=== PATIENT | male | born 1970 | race Caucasian/White ===

== ENCOUNTER 2019-03-29 14:09 | Emergency (ER) | payer OTHER, SELFPAY ==
--- NOTE | ~2019-03-29 | XR_ITS ---
EXAMINATION: XR chest 2V EXAM DATE: 03/29/2019 15:02 INDICATION: Cough, fever. TECHNIQUE: Frontal and lateral projections of the chest obtained and reviewed. Comparison is made to prior examination from 06/10/2018. FINDINGS: The lungs are clear. There are no pleural effusions. The cardiomediastinal silhouette is within normal limits. There is no pneumothorax suspected. The bones and soft tissues are unremarkab le. IMPRESSION: Normal chest x-ray exam. Reviewed, dictated and finalized at location [facility] IMPRESSION: Normal chest x-ray exam.
[2019-03-29 14:20] VITALS: BP 115/76; PULSE 84; RESP 16; TEMP 36.7; O2SAT 100
--- NOTE | 2019-03-29 14:57 | ED.URI ---
HPI - URI/Sore Throat General Chief Complaint: Upper Respiratory Infection Stated Complaint: COUGH/CONGESITON/FEVER Time Seen by Provider: 03/29/19 14:47 Source: patient Mode of arrival: ambulatory Limitations: no limitations History of Present Illness HPI Narrative: 49-year-old male presents for evaluation of symptoms that developed 3 to 4 days ago. He is reporting a fever max of 104, chills, sweats, myalgias, cough that is mildly productive, intermittent chest tightness, soreness with cough. He is used DayQuil and NyQuil for symptoms. He has been exposed to family members with similar symptoms. He reports history of cardiac murmur, palpitations. He saw his riveting machine operator 2 weeks ago and had a full work-up that was negative. He did not get a flu shot this season. He denies smoking. Related Data Home Medications Medication Instructions Recorded Confirmed aspirin [Aspirin Childrens] 81 mg PO DAILY 03/29/19 03/29/19 nebivolol [Bystolic] mg 03/29/19 Allergies Allergy/AdvReac Type Severity Reaction Status Date / Time Penicillins Allergy Mild unknown Verified 06/10/18 09:26 BEE STINGS Allergy Unknown SWELLING Uncoded 04/22/14 10:25 Review of Systems Review of Systems: Narrative: CONSTITUTIONAL: Denies weight loss. reports fever, chills, sweats. EYES: Denies visual changes, redness, or discharge. ENT: Reports rhinorrhea, congestion, sore throat.denies otalgia. CARDIOVASCULAR: Reports chest heaviness, chest pain. Denies edema. RESPIRATORY: Reports cough. Denies dyspnea. GASTROINTESTINAL: Denies abdominal pain, nausea, vomiting, or diarrhea. GENITOURINARY: Denies dysuria, hematuria, urinary frequency, malordous urine SKIN: Denies rash or itching. MUSCULOSKELETAL: Denies back pain, joint pain, swelling. Reports myalgias NEUROLOGIC: Denies headache, numbness, or weakness. PMFSH Comments Reviewed Exam Narrative: Exam Narrative: GENERAL: No distress, well appearing, well nourished, alert and calm HEAD: Normocephalic, atraumatic. No sinus tenderness noted EYES: Pupils equal, round. Extraocular movements intact. Conjunctivae without redness or drainage. EARS: Tympanic membranes without erythema. TM landmarks intact with good light reflex. Ear canals without discharge. NOSE: Nares patent. Nasal turbinates noninflamed. No nasal discharge MOUTH: Mucous membranes moist. No lesions. No cyanosis. Dentition grossly normal. THROAT: Oropharynx without signs erythema, exudates or lesions. Tonsils not enlarged. NECK: Supple. No lymphadenopathy. RESPIRATORY: Airway patent. Decreased aeration noted to bilateral bases. No wheezing or crackles CARDIOVASCULAR: Regular rate and rhythm. Murmur noted. No rubs, gallops, or clicks. Capillary refill <2 seconds. GASTROINTESTINAL: Soft, nontender, non-distended. Bowel sounds normoactive. No masses. No organomegaly. No CVA tenderness MUSCULOSKELETAL: Range of motion grossly normal in all four extremities. Strength grossly normal in all four extremities. No edema. No swelling SKIN: Color normal. Warm and dry. No rashes. NEURO: Alert. Motor intact in all extremities. Muscle tone normal. Cranial nerves II through XII grossly intact Course Course Emergency Course: Than patient's cardiac history along with symptoms of chest heaviness and occasional chest pain, and recommend patient get EKG. Patient declined this test as he saw his riveting machine operator 2 weeks ago and had a full work-up. Educated patient about risks of not doing test in case there was an acute coronary event. Patient aware and verbalized understanding. Vital Signs Vital signs: Vital Signs Temperature 98.0 F 03/29/19 14:20 Pulse Rate 84 03/29/19 14:20 Respiratory Rate 16 03/29/19 14:20 Blood Pressure 115/76 03/29/19 14:20 Pulse Oximetry 100 03/29/19 14:20 Temperature 98.0 F 03/29/19 14:20 Pulse Rate 84 03/29/19 14:20 Respiratory Rate 16 03/29/19 14:20 Blood Pressure 115/76 03/29/19 14:20 Pulse Oxim
== END 2019-03-29 15:41 | disposition home or self-care (01) ==
PROVIDERS: Emergency Provider Nurse Practitioner
DX: J10.1 Influenza due to other identified influenza virus with other respiratory manifestations (principal); R01.1 Cardiac murmur, unspecified
CPT/HCPCS: 71046; 87804; 99213; G0463